=== PATIENT | female | born 1980 | race Caucasian/White ===

== ENCOUNTER → 2023-11-22 | Outpatient (CLI) | payer OTHER, SELFPAY ==
--- OUTSIDE RECORDS SUMMARY | 2023-11-22 07:41 | XMS RPT_ITS | CCD ---
Author Name Unknown Address [address] [place] [address] Organization [facility] Care Team Providers Care Health Therapist Name Role Phone Unknown, Referring Provider Unavailable Unav ailable Unavailable Unavailable Unavailable Unavailable Peyton Manuel MD Primary Care Provider [phone] Unavailable Unavailable Peyton Manuel MD Primary Care Provider PEYTON MANUEL Primary Care Unavailable PEYTON MANUEL Primary Care Unavailable PEYTON MANUEL Primary Care Unavailable UNKNOWN, PCP Primary Care Unavailable Dr. Kalee Aguirre Attending Jacinda vailable Timothy, Dr. Kalee Sosa Admitting Jacinda vailable UNKNOWN, PCP Primary Care Unavailable Timothy, Dr. Kalee Sosa Attending Jacinda vailable Timothy, Dr. Kalee Sosa Referring Jacinda vailable UNKNOWN, PCP Primary Care Unavailable Dr. Kalee Aguirre Attending Jacinda vailable Timothy, Dr. Kalee Sosa Referring Jacinda vailable Timothy, Dr. Kalee Sosa Attending Jacinda vailable UNKNOWN, PCP Primary Care Unavailable Timothy, Dr. Kalee Sosa Referring Jacinda vailable UNKNOWN, PCP Primary Care Unavailable MD IRENA HAMMOND Attending Unavail able Dr. Kalee Aguirre Referring Jacinda vailable UNKNOWN, PCP Primary Care Unavailable PCP, Pt States None Referring Unavailable MD IRENA HAMMOND Attending Unavail able Allergies Allergy Classification Reported Allergen(s) Allergy Type Date of Onset Reaction(s) Facility (20 sources) Amoxicillin; Translations: [Amoxicillin TABS] Drug Allergy 5 Hives [facility] Work Phone: (4 sources) predniSONE; Translations: [PREDNISONE] Drug Allergy Other: See Comments [facility] Work Phone: (3 sources) Environmental Allergies [Other] Propensity to adverse reactions 6 [facility] (3 sources) Seasonal [Other] Propensity to adverse reactions 8 [facility] Work Phone: (1 source) Amoxicillin; Translations: [AMOXICILLIN] Drug Allergy 5 [facility] Repository (1 source) OTHER; Translations: [OTHER] Propensity to adverse reactions (disorder) 8 [facility] Repository Medications Current Medications Medication Drug Class(es) Dates Sig (Normalized) Sig (Original) cefdinir 300 mg oral capsule (1 source) Cephalosporin Antibacterial Start: 09-29-2022 End: 10-06-2022 take 1 capsule by mouth twice daily cefdinir (OMNICEF) 300 mg capsule Indications: Bacterial sinusitis Take 1 capsule by mouth twice daily for 7 days. 14 capsule 0 09/29/2022 10/06/2022 Active Completed/Discontinued Medications Medication Drug Class(es) Dates Sig (Normalized) Sig (Original) [id number] 200 actuat albuterol 0.09 mg/actuat metered dose inhaler (20 sources) beta2-Adrenergic Agonist Start: 12-02-2020 take 2 puff(s) by inhalation every four hours as needed for wheezing albuterol HFA (PROAIR HFA) 90 mcg/actuation inhaler Inhale 2 Puffs as instructed every 4 hours as needed for Wheezing/Shortnes s of Breath (coughing, tightness in chest). 18 g 0 12/02/2020 Active Problems Active Problems Problem Classification Problem Date Documented Date Episodic/Chronic Allergic reactions (20 sources) Idiopathic urticaria; Translations: [Idiopathic urticaria] Episodic Asthma (3 sources) Asthma; Translations: [Unspecified asthma, uncomplicated] 09-07-2011 Chronic Fever of unknown origin (1 source) Fever; Translations: [Fever, unspecified] Episodic Headache; including migraine (20 sources) Refractory migraine without aura; Translations: [Chronic migraine without aura, with intractable migraine, so stated, with status migrainosus] Onset: 08-27-2014 10-02-2015 Chronic Immunizations and screening for infectious disease (1 source) Rheumatoid factor positive; Translations: [Other and unspecified nonspecific immunological findings] Episodic Maintenance chemotherapy; radiotherapy (1 source) Encounter for antineoplastic immunotherapy; Translations: [Encounter for antineoplastic immunotherapy] Onset: 12-09-2021 Chronic Nausea and vomiting (20 sources) Nausea and vomiting; Translations: [Nausea with vomiting] Episodic Neoplasms of unspecified nature or uncertain behavior (11 sources) Mast cell disorder; 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] Episodic Other circulatory disease (20 sources) H/O: hypertension; Translations: [Personal history of other diseases of circulatory system] Episodic Other hereditary and degenerative nervous system conditions (20 sources) Isolated cervical dystonia; 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 Other nervous system disorders (20 sources) H/O: Disorder; Translations: [Other disorders of ear] Episodic Other non-traumatic joint disorders (1 source) Multiple joint pain; Translations: [Pain in joint, multiple sites] Episodic Other upper respiratory disease (14 sources) Allergic rhinitis; Translations: [Allergic rhinitis due to other allergen] Chronic Other upper respiratory disease (1 source) Nasal sinus problem; Translations: [Other specified disorders of nose and nasal sinuses] Episodic Other upper respiratory disease (1 source) Nasal congestion; Translations: [Nasal congestion] Episodic Other upper respiratory infections (1 source) Bacterial sinusitis; Translations: [Chronic sinusitis, unspecified] Chronic Other upper respiratory infections (3 sources) Sore throat symptom; Translations: [Acute pharyngitis, unspecified] Episodic Past or Other Problems Problem Classification Problem Date Documented Date Episodic/Chronic Contraceptive and procreative management (3 sources) Intrauterine contraceptive device in situ; Translations: [Encounter for routine checking of intrauterine contraceptive device] Onset: 08-03-2010 08-03-2010 Episodic Headache; including migraine (3 sources) Drug-induced headache, not elsewhere classified, not intractable; Translations: [Drug induced headache, not elsewhere classified] Onset: 08-27-2014 08-27-2014 Episodic NEGATED: Highlighted row has been ruled out!Neoplasms of unspecified nature or uncertain behavior (5 sources) Mast cell disorder; 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] Episodic Results Test Name Value Interpretation Reference Range Facil ity Vital Signs Date Time Vital Sign Value Performing Clinician Facility 02-23-2023 10:45-0500 Body height 162.56 cm Referring Provider Unknown AG-Twxezbxdx-Ncbvx a 170 DO Work Phone: 11-25-2022 10:45-0500 Body temperature 98 [degF] Referring Provider Unknown ZG-Kibrnupcs-Hujqj a 170 DO Work Phone: 11-25-2022 10:45-0500 Diastolic blood pressure 87 mm[Hg] Referring Provider Unknown UU-Jnjpavvvj-Lkuwo a 170 DO Work Phone: 11-25-2022 10:45-0500 Heart rate 80 /min Referring Provider Unknown UA-Tvhuebnkm-Esmwk a 170 DO Work Phone: 11-25-2022 10:45-0500 Systolic blood pressure 132 mm[Hg] Referring Provider Unknown IZ-Pejmuihtu-Mvpao a 170 DO Work Phone: 11-10-2022 10:57-0500 Body height 162.6 cm Savanna Wormald PA-C Work Phone: [facility] 11-10-2022 10:57-0500 Body temperature 97.39 [degF] Savanna Wormald PA-C Work Phone: [facility] 11-10-2022 10:57-0500 Body weight 86.18 kg Savanna Wormald PA-C Work Phone: [facility] 11-10-2022 10:57-0500 Diastolic blood pressure 97 mm[Hg] Savanna Wormald PA-C Work Phone: [facility] 11-10-2022 10:57-0500 Heart rate 94 /min Savanna Wormald PA-C Work Phone: [facility] 11-10-2022 10:57-0500 Respiratory rate 18 /min Savanna Wormald PA-C Work Phone: [facility] 11-10-2022 10:57-0500 SaO2% (BldA) [Mass fraction] 97 % Savanna Wormald PA-C Work Phone: [facility] 11-10-2022 10:57-0500 Systolic blood pressure 119 mm[Hg] Savanna Wormald PA-C Work Phone: [facility] 09-29-2022 08:06-0500 Body temperature 98.2 [degF] Savanna Wormald PA-C Work Phone: [facility] 09-29-2022 08:06-0500 Body weight 85.09 kg Savanna Wormald PA-C Work Phone: [facility] 09-29-2022 08:06-0500 Diastolic blood pressure 84 mm[Hg] Savanna Wormald PA-C Work Phone: [facility] 09-29-2022 08:06-0500 Heart rate 82 /min Savanna Wormald PA-C Work Phone: [facility] 09-29-2022 08:06-0500 SaO2% (BldA) [Mass fraction] 95 % Savanna Wormald PA-C Work Phone: [facility] 09-29-2022 08:06-0500 Systolic blood pressure 118 mm[Hg] Savanna Wormald PA-C Work Phone: [facility] 03-15-2022 15:05-0400 Body temperature 98.2 [degF] Referring Provider Unknown RJ-Zvicaqhiv-Ilryl a 170 DO Work Phone: 03-15-2022 15:05-0400 Diastolic blood pressure 74 mm[Hg] Referring Provider Unknown AT-Mwejdtecp-Oyuyo a 170 DO Work Phone: 03-15-2022 15:05-0400 Heart rate 72 /min Referring Provider Unknown JT-Hwqhiqshj-Updqs a 170 DO Work Phone: 03-15-2022 15:05-0400 Respiratory rate 12 /min Referring Provider Unknown PP-Yadfpubzc-Thnxq a 170 DO Work Phone: 03-15-2022 15:05-0400 Systolic blood pressure 100 mm[Hg] Referring Provider Unknown ND-Brxtxetbr-Txrgf a 170 DO Work Phone: 06-03-2022 10:00-0400 Body mass index (BMI) [Ratio] 32.61 kg/m2 Referring Provider Unknown OI-Bjdaqplqri-Nlth n [id number] Work Phone: 03-05-2022 10:00-0400 Body surface area Derived from formula 1.91 m2 Referring Provider Unknown RU-Ycjylnignl-Ajlz n 58583 Work Phone: 03-05-2022 10:00-0400 Body weight 86.18 kg Referring Provider Unknown TE-Sxjiytsvsq-Jjxc n 32628 Work Phone: 03-05-2022 10:00-0400 Diastolic blood pressure 100 mm[Hg] Referring Provider Unknown RP-Fmhrxozzjm-Fvvo n [id number] Work Phone: 03-05-2022 10:00-0400 Heart rate 74 /min Referring Provider Unknown EN-Gwalakbdqi-Ghxy n 21687 Work Phone: 03-05-2022 10:00-0400 Systolic blood pressure 133 mm[Hg] Referring Provider Unknown BZ-Xwxxaftbrf-Fzfv n [id number] Work Phone: 03-02-2022 09:34-0400 Body height 162.6 cm Desiree Aissatouaugh PA-C Work Phone: [facility] 03-02-2022 09:34-0400 Body weight 85.28 kg Desiree Slabaugh PA-C Work Phone: [facility] 03-02-2022 09:34-0400 Diastolic blood pressure 87 mm[Hg] Desiree Aissatouaugh PA-C Work Phone: [facility] 03-02-2022 09:34-0400 Heart rate 92 /min Desiree Slabaugh PA-C Work Phone: [facility] 03-02-2022 09:34-0400 SaO2% (BldA) [Mass fraction] 99 % Desiree Slabaugh PA-C Work Phone: [facility] 03-02-2022 09:34-0400 Systolic blood pressure 127 mm[Hg] Desiree Slabaugh PA-C Work Phone: [facility] 02-01-2022 10:05-0400 Body mass index (BMI) [Ratio] 32.27 kg/m2 Referring Provider Unknown OV-Sigtzgddpx-Ctxw n 45636 Work Phone: 02-01-2022 10:05-0400 Body surface area Derived from formula 1.91 m2 Referring Provider Unknown UH-Qsogeidjxl-Kppc n 88089 Work Phone: 02-01-2022 10:05-0400 Body weight 85.28 kg Referring Provider Unknown RY-Lavjrsuaxk-Gruz n 31014 Work Phone: 02-01-2022 10:05-0400 Diastolic blood pressure 89 mm[Hg] Referring Provider Unknown AO-Qyelupqibp-Qhgz n 57182 Work Phone: 02-01-2022 10:05-0400 Heart rate 71 /min Referring Provider Unknown AR-Caugezdrwu-Uavo n 48023 Work Phone: 02-01-2022 10:05-0400 Systolic blood pressure 135 mm[Hg] Referring Provider Unknown EC-Ptsbdzmaee-Zumu n 27684 Work Phone: 12-31-2021 07:56-0400 Body temperature 98.1 [degF] Referring Provider Unknown HZ-Ilpwnvvcn-Ngxph a 170 DO Work Phone: 12-31-2021 07:56-0400 Diastolic blood pressure 70 mm[Hg] Referring Provider Unknown HW-Movwetelw-Gotlg a 170 DO Work Phone: 12-31-2021 07:56-0400 Heart rate 68 /min Referring Provider Unknown JP-Fytudovnu-Itvjs a 170 DO Work Phone: 12-31-2021 07:56-0400 Respiratory rate 16 /min Referring Provider Unknown WK-Hwfuqyiux-Fyhpr a 170 DO Work Phone: 12-31-2021 07:56-0400 Systolic blood pressure 104 mm[Hg] Referring Provider Unknown WT-Lkjayqpvp-Tbdfy a 170 DO Work Phone: Encounters Encounter Date Encounter Type Care Provider Facility Start: 06-24-2023 Rx Renewal Referring Prov ider Unknown XO-Tjjpmzkiz-Aoxesxg 5th Work Phone: Start: 11-25-2022 Office outpatient vi sit 25 minutes Referring Provider Unknown MT-Akzhhudir-Bpueej 170 DO Work Phone: Start: 11-25-[address] Kalee Aguirre Facility:[id number] Start: 11-10-2022 End: 11-10-2022 ambulatory PEYTON MANUEL Facility:[facility] Start: 11-10-2022 End: 11-10-2022 Patient encounter procedure Savanna Hurtado PA-C Work Phone: [facility] Procedures Date Procedure Procedure Detail Performing Clinician Start: 11-10-2022 STREP A MOLECULAR (POC) Savanna Hurtado PA-C Work Phone: Start: 08-24-2016 Adult depression screening assessment Desiree Horton PA-C Work Phone: Adenoid excision Referring Sravanthi artis Unknown Plan of Treatment Date Care Activity Detail Author Start: 02-24-2023 FUVGENERAL, Provider: Kalee Aguirre, Status: Pen, Time: 10:00 AM FUVGENERAL, Provider: Kalee Aguirre, Status: Pen, Time: 10:00 AM IJ-Fsxblilza-Caolrm 170 DO Work Phone: Start: 10-03-2022 DEPRESSION ASSESSMENT DEPRESSION ASSESSMENT [facility] Start: 09-13-2022 FUVGENERAL, Provider: Kalee Aguirre, Status: Pen, Time: 10:30 AM FUVGENERAL, Provider: Kalee Aguirre, Status: Pen, Time: 10:30 AM WQ-Grpbajfjx-Tosfbt 170 DO Work Phone: Start: 06-03-2022 Influenza vaccination [facility] Start: 03-15-2022 FUVGENERAL, Provider: Kalee Aguirre, Status: Pen, Time: 3:00 PM FUVGENERAL, Provider: Kalee Aguirre, Status: Pen, Time: 3:00 PM WP-Kxcaeyhkp-Ctmcfe 170 DO Work Phone: Start: 03-05-2022 FUV, Provider: Iram Farr, Status: Pen, Time: 10:00 AM FUV, Provider: Iram Farr, Status: Pen, Time: 10:00 AM QM-Vufitniaov-Rvtnq 53947 Work Phone: Start: 02-01-2022 NPVRFRL, Provider: Irena Hammond, Status: Pen, Time: 10:00 AM NPVRFRL, Provider: Irena Hammond, Status: Pen, Time: 10:00 AM [facility] Work Phone: Start: 10-03-2021 DEPRESSION ASSESSMENT DEPRESSION ASSESSMENT [facility] Start: 08-11-2021 Urine microalbumin profile DTAP,TDAP,TD (2 - Td or Tdap) [facility] Start: 2019 Mammography MAMMOGRAM [facility] Start: 08-24-2017 Adult depression screening assessment DEPRESSION SCREENING [facility] Start: 08-03-2015 HPV TESTING HPV TESTING [facility] Start: 08-03-2015 PAP TESTING PAP TESTING [facility] Start: 1997 ANNUAL PCP TEAM CHRONIC DISEASE VISIT ANNUAL PCP TEAM CHRONIC DISEASE VISIT [facility] Start: 1997 HEPATITIS C SCREENING HEPATITIS C SCREENING [facility] Start: 1997 HIV SCREENING HIV SCREENING [facility] Start: 1997 SPIROMETRY SPIROMETRY [facility] Start: 1985 PNEUMOCOCCAL (1 - PCV) PNEUMOCOCCAL (1 - PCV) [facility] Start: 1984 COVID-19 VACCINE (#1) COVID-19 VACCINE (#1) [facility] Start: 04-08-1980 COVID-19 VACCINE (#1) COVID-19 VACCINE (#1) [facility] Start: 1979 HEPATITIS B (1 of 3 - 3-dose series) HEPATITIS B (1 of 3 - 3-dose series) [facility] Immunizations Immunization Date Immunization Notes Care Provider Debra lima 08-11-2011 tetanus toxoid, redu hudson diphtheria toxoid, and acellular pertussis vaccine, adsorbed Desiree Horton PA-C Work Phone: [facility] Work Phone: Payers Date Payer Category Payer Unknown 2019 Unknown MMO MMO [employer] [id number] 2019-Present [phone] [address] [place] [address] PPO [id number] 2019 Unknown [id number] 1979 Unknown [id number] 1979 Unknown [id number] 1979 Unknown [id number] 1979 Unknown [id number] 1979 Unknown [id number] 1979 Unknown [id number] Social History Date Type Detail Facility Start: 09-29-2022 Occasional alcohol use Occasional al cohol use VL-Htlagwynx-Ksfgij 170 DO Work Phone: Start: 09-29-2022 Tobacco smoking stat us ORIS Ex-smoker [facility] End: 11-03-1998 History of tobacco use Current smoker [facility] End: 11-03-1998 History of tobacco use Cigarette Smoker [facility] Start: 12-02-2020 End: 11-10-2022 Alcohol intake Current drinker of alcohol (finding) [facility] Start: 12-30-2011 History SDOH Alcohol Comment Rarely 4 per year [facility] Start: 1979 Sex Assigned At Not on file [facility] Start: 02-20-2022 End: 03-02-2022 Exposure to SARS-CoV-2 (event) Not sure [facility] Start: 09-29-2022 Tobacco use and exposure Smokeless tobacco non-user [facility] Medical Equipment Procedure Code Equipment Code Equipment Origin al Text Equipment Identifier Dates use to inject SUMATRIPTAN Start: 10-16-2020 Clinical Notes 01-09-2010 to 11-25-2022 Patient InstructionsSavanna Hurtado PA-C - 11/10/2022 10:56 AM ESTPatient InstructionsSavanna Hurtado PA-C - 09/29/2022 8:08 AM ESTPatient Instructions Note Date & Type Note Facility 11-25-2022 History of Present illness Narrative Migraines go through phases. Having a mild headache everyday, but migraine 4-5 days per week able to push through these .Due to her swelling and immunologic concerns - she is trying to take as little medication as possible.She is using Trudesa as needed 3x/month, and Qulipta as needed -- taking every 2-3 months takes rarely . These work great.Has Sumatriptan injection, hasn't used it recently.Using Trizanidine, but makes her hands face and neck swell. Does help her sleep.She stopped Reyvow due to weird dreams.Was having recurrent swelling and warmth, also some reactions to medications.Saw almond roaster for first time 02-01-2022. Given Dx of Idiopathic urticaria and Idiopathic urticaria.Ruled out mast cell disease. - still a problem.Reacted to December so no longer taking. Couldn't breath, flushed, chills but overheated. shaky of r along time. SOB for about 1 month.Migraine occurs behind eyes bilateral. Describes as pressureAssociated light and noise sensitivity, smell sensitivity, occasional nausea and vomiting.Triggers are strong smells, some foodsSleep has been good. Tizanidine prn. Has read that it increases histamine levels.Is seeing a commercial truck driver . Is trying to do a histamine diet and antiinflammatory diet.Gets headaches from advil or ibprofen. AK-Dnmibzvwb-Zvvjdc 170 DO Work Phone: 11-10-2022 Note HNO ID: [id number] Author: Savanna Hurtado PA-C Service: ? Author Type: Physician Director Advanced Type: Progress Notes Filed: 11/10/2022 11:40 AM Note Text: Subjective Rosamaria Romero Joricarey is a 42 year old female with a past medical history of migraine who presents [facility] today for evaluation of sore throat and fever that began 3 days ago. She was exposed to a niece who has strep pharyngitis. Review of Systems Constitutional: Positive for fever. Negative for chills and diaphoresis. HENT: Positive for sore throat. Negative for congestion and ear pain. Respiratory: Negative for cough and shortness of breath. Skin: Negative for rash and wound. Neurological: Negative for weakness and headaches. All other systems reviewed and are negative. Objective BP 119/97 Pulse 94 Temp 36.3 ?C (97.4 ?F) (Temporal) Resp 18 Ht 162.6 cm (5' 4 ) Wt 86.2 kg (190 lb) LMP 09/05/2022 (Approximate) SpO2 97% BMI 32.61 kg/m? Physical Exam Vitals reviewed. Constitutional: General: She is not in acute distress. Appearance: Normal appearance. She is normal weight. She is not ill-appearing or toxic-appearing. Comments: The patient appears to be non-toxic, in no acute distress, and resting comfortably on the table. HENT: Head: Normocephalic and atraumatic. Right Ear: Tympanic membrane, ear canal and external ear normal. Left Ear: Tympanic membrane, ear canal and external ear normal. Mouth/Throat: Mouth: Mucous membranes are moist. Pharynx: Oropharynx is clear. Uvula midline. Posterior oropharyngeal erythema present. Tonsils: No tonsillar exudate. 1+ on the right. 1+ on the left. Eyes: Extraocular Movements: Extraocular movements intact. Cardiovascular: Rate and Rhythm: Normal rate and regular rhythm. Heart sounds: Normal heart sounds. No murmur heard. No friction rub. No gallop. Pulmonary: Effort: Pulmonary effort is normal. No respiratory distress. Breath sounds: Normal breath sounds. No wheezing. Musculoskeletal: General: Normal range of motion. Cervical back: Normal range of motion. Skin: General: Skin is warm and dry. Findings: No erythema or rash. Neurological: General: No focal deficit present. Mental Status: She is alert and oriented to person, place, and time. Mental status is at baseline. Psychiatric: Mood and Affect: Mood normal. Behavior: Behavior normal. Thought Content: Thought content normal. Assessment and Plan Exam reveals postpharyngeal erythema with bilateral tonsillar edema. Uvula is midline. No trismus. Rapid strep positive. Results discussed with patient. Patient counseled regarding suspected diagnosis and given prescription for Keflex. Patient advised to follow-up with her primary care provider as needed for any new or worsening symptoms. ASSESSMENT/PLAN: 1. Strep throat - ICD9: 034.0, ICD10: J02.0 (primary diagnosis) - suspect strep - Rapid Strep positive in the office today - CEPHALEXIN 500 MG CAPSULE 2. Sore throat - ICD9: 462, ICD10: J02.9 - STREP A MOLECULAR (POC) 3. Fever, unspecified fever cause - ICD9: 780.60, ICD10: R50.9 - STREP A MOLECULAR (POC) Medical Decision Making: Problems: Moderate: Acute illness with systemic symptoms Risk: Minimal: Minimal risk from testing/treatment Moderate: Drug management Medical Decision Making Level: 4 - Moderate I spent a total of 20 minutes on the date of the service which included preparing to see the patient, vpln-cu-znma patient care, completing clinical documentation, performing a medically appropriate examination, counseling and educating the patient/family/caregiver, and ordering medications, tests, or procedures. [facility] 11-10-2022 Instructions Savanna Hurtado PA-C - 11/10/2022 11:30 AM EST Strep Pharyngitis You have had a positive test for strep throat. Strep throat is a contagious illness. It's spread by coughing, kissing, sharing glasses or eating utensils, or by touching others after touching your mouth or nose. Symptoms include throat pain that is worse with swallowing, aching all over, headache, swollen lymph nodes at the front of the neck, and red swollen tonsils sometimes with white patches and fever. It's treated with antibiotic medicine. This should help you start to feel better in 1 to 2 days. Home care Rest at home. Drink plenty of fluids so you won't get dehydrated. No work or school for the first 2 days of taking the antibiotics. You can then return to school or work if you are feeling better, have been taking the antibiotic for at least 24 hours and don't have a fever. Take antibiotic medicine for the full 10 days, even if you feel better. This is very important to ensure the infection is treated completely. It's also important to prevent medicine-resistant germs from developing. If you were given an antibiotic shot, you don't need any more antibiotics. You may use acetaminophen or ibuprofen to control pain or fever, unless another medicine was prescribed for this. Talk with your healthcare provider before taking these medicines if you have chronic liver or kidney disease or if you have had a stomach ulcer or gastrointestinal bleeding. Throat lozenges or sprays help reduce pain. Gargling with warm saltwater will also reduce throat pain. Dissolve 1/2 teaspoon of salt in 1 glass of warm water. This may be useful just before meals. Soft foods and cool or warm fluids are best. Don't eat salty or spicy foods. Follow-up care Follow up with your healthcare provider or our staff if you don't get better over the next week. When to get medical advice Call your healthcare provider right away or get immediate medical care if any of these occur: - Fever of 100.4 F (38 C) or higher, or as directed by your healthcare provider - New or worsening ear pain, sinus pain, or headache - Painful lumps in the back of neck - Stiff neck - Lymph nodes getting larger or becoming soft in the middle - You have trouble swallowing liquids or you can't open your mouth wide because of throat pain - Signs of dehydration. These include very dark urine or no urine, sunken eyes, and dizziness. - Noisy breathing - Muffled voice - Rash Call 911 Call 911right away if you: - Have trouble breathing - Can't swallow or talk Prevention Here are steps you can take to help prevent an infection: - Wash your hands often with soap and clean, running water for at least 20 seconds. - Don t have close contact with people who have sore throats, colds, or other upper respiratory infections. - Don t smoke, and stay away from secondhand smoke. documented in this encounter [facility] 11-10-2022 History of Present illness Narrative Subjective Rosamaria Umaña is a 42 year old female with a past medical history of migraine who presents [facility] today for evaluation of sore throat and fever that began 3 days ago. She was exposed to a niece who has strep pharyngitis. Review of Systems Constitutional: Positive for fever. Negative for chills and diaphoresis. HENT: Positive for sore throat. Negative for congestion and ear pain. Respiratory: Negative for cough and shortness of breath. Skin: Negative for rash and wound. Neurological: Negative for weakness and headaches. All other systems reviewed and are negative. Objective BP 119/97 Pulse 94 Temp 36.3 C (97.4 F) (Temporal) Resp 18 Ht 162.6 cm (5' 4 ) Wt 86.2 kg (190 lb) LMP 09/05/2022 (Approximate) SpO2 97% BMI 32.61 kg/m Physical Exam Vitals reviewed. Constitutional: General: She is not in acute distress. Appearance: Normal appearance. She is normal weight. She is not ill-appearing or toxic-appearing. Comments: The patient appears to be non-toxic, in no acute distress, and resting comfortably on the table. HENT: Head: Normocephalic and atraumatic. Right Ear: Tympanic membrane, ear canal and external ear normal. Left Ear: Tympanic membrane, ear canal and external ear normal. Mouth/Throat: Mouth: Mucous membranes are moist. Pharynx: Oropharynx is clear. Uvula midline. Posterior oropharyngeal erythema present. Tonsils: No tonsillar exudate. 1+ on the right. 1+ on the left. Eyes: Extraocular Movements: Extraocular movements intact. Cardiovascular: Rate and Rhythm: Normal rate and regular rhythm. Heart sounds: Normal heart sounds. No murmur heard. No friction rub. No gallop. Pulmonary: Effort: Pulmonary effort is normal. No respiratory distress. Breath sounds: Normal breath sounds. No wheezing. Musculoskeletal: General: Normal range of motion. Cervical back: Normal range of motion. Skin: General: Skin is warm and dry. Findings: No erythema or rash. Neurological: General: No focal deficit present. Mental Status: She is alert and oriented to person, place, and time. Mental status is at baseline. Psychiatric: Mood and Affect: Mood normal. Behavior: Behavior normal. Thought Content: Thought content normal. Assessment and Plan Exam reveals postpharyngeal erythema with bilateral tonsillar edema. Uvula is midline. No trismus. Rapid strep positive. Results discussed with patient. Patient counseled regarding suspected diagnosis and given prescription for Keflex. Patient advised to follow-up with her primary care provider as needed for any new or worsening symptoms. ASSESSMENT/PLAN: 1. Strep throat - ICD9: 034.0, ICD10: J02.0 (primary diagnosis) - suspect strep - Rapid Strep positive in the office today - CEPHALEXIN 500 MG CAPSULE 2. Sore throat - ICD9: 462, ICD10: J02.9 - STREP A MOLECULAR (POC) 3. Fever, unspecified fever cause - ICD9: 780.60, ICD10: R50.9 - STREP A MOLECULAR (POC) Medical Decision Making: Problems: Moderate: Acute illness with systemic symptoms Risk: Minimal: Minimal risk from testing/treatment Moderate: Drug management Medical Decision Making Level: 4 - Moderate I spent a total of 20 minutes on the date of the service which included preparing to see the patient, [id number] patient care, completing clinical documentation, performing a medically appropriate examination, counseling and educating the patient/family/caregiver, and ordering medications, tests, or procedures. documented in this encounter [facility] 09-29-2022 Note HNO ID: [id number] Author: Savanna Hurtado PA-C Service: ? Author Type: Physician Director Advanced Type: Progress Notes Filed: 09/29/2022 8:26 AM Note Text: Subjective Rosamaria Umaña is a 41 year old female with a past medical history of migraine who presents to [facility] today for evaluation of cough, nasal congestion, sinus pressure, and sinus pain x1 month. She states that she has had sinus infections in the past and this feels similar. She denies having any fever. No known exposure to COVID-19 or influenza. Review of Systems Constitutional: Negative for chills, diaphoresis and fever. HENT: Positive for congestion, sinus pressure, sinus pain and sore throat. Negative for ear pain. Eyes: Negative for discharge and redness. Respiratory: Positive for cough. Negative for shortness of breath. Skin: Negative for rash and wound. Neurological: Negative for weakness and headaches. All other systems reviewed and are negative. Objective BP 118/84 Pulse 82 Temp 36.8 ?C (98.2 ?F) (Tympanic) Wt 85.1 kg (187 lb 9.6 oz) LMP 09/05/2022 (Approximate) SpO2 95% BMI 32.20 kg/m? Physical Exam Vitals reviewed. Constitutional: General: She is not in acute distress. Appearance: Normal appearance. She is normal weight. She is not ill-appearing or toxic-appearing. Comments: The patient appears to be non-toxic, in no acute distress, and resting comfortably on the table. HENT: Head: Normocephalic and atraumatic. Right Ear: Ear canal and external ear normal. A middle ear effusion is present. Left Ear: Ear canal and external ear normal. A middle ear effusion is present. Nose: Right Sinus: Maxillary sinus tenderness present. Left Sinus: Maxillary sinus tenderness present. Eyes: Extraocular Movements: Extraocular movements intact. Cardiovascular: Rate and Rhythm: Normal rate and regular rhythm. Heart sounds: Normal heart sounds. No murmur heard. No friction rub. No gallop. Pulmonary: Effort: Pulmonary effort is normal. No respiratory distress. Breath sounds: Normal breath sounds. No wheezing. Musculoskeletal: General: Normal range of motion. Cervical back: Normal range of motion. Skin: General: Skin is warm and dry. Findings: No erythema or rash. Neurological: General: No focal deficit present. Mental Status: She is alert and oriented to person, place, and time. Mental status is at baseline. Psychiatric: Mood and Affect: Mood normal. Behavior: Behavior normal. Thought Content: Thought content normal. Assessment and Plan History and exam are consistent with acute bacterial sinusitis. Patient counseled regarding suspected diagnosis and given prescription for Omnicef. Patient advised to follow-up with her primary care provider as needed for any new or worsening symptoms ASSESSMENT/PLAN: 1. Bacterial sinusitis - ICD9: 473.9, 041.9, ICD10: J32.9, B96.89 (primary diagnosis) - Will begin treatment with as per antibiotic as written, see orders - CEFDINIR 300 MG CAPSULE 2. Sore throat - ICD9: 462, ICD10: J02.9 3. Sinus pressure - ICD9: 478.19, ICD10: J34.89 4. Nasal congestion - ICD9: 478.19, ICD10: R09.81 Medical Decision Making: Problems: Low: Acute, uncomplicated illness or injury Risk: Minimal: Minimal risk from testing/treatment Moderate: Drug management Medical Decision Making Level: 3 - Low I spent a total of 20 minutes on the date of the service which included preparing to see the patient, [id number] patient care, completing clinical documentation, performing a medically appropriate examination, counseling and educating the patient/family/caregiver, and ordering medications, tests, or procedures. [facility] 09-29-2022 Instructions Savanna Hurtado PA-C - 09/29/2022 8:18 AM EST [facility] PATIENT INFO ACUTE SINUSITIS OVERVIEW Rhinosinusitis, or more commonly sinusitis, is the medical term for inflammation (swelling) of the lining of the sinuses and nose. The sinuses are the hollow areas within the facial bones that are connected to the nasal openings. The sinuses are lined with mucous membranes, similar to the inside of the nose. There are two main types of sinusitis: acute and chronic. Acute sinusitis is inflammation that lasts for less than four weeks while chronic sinusitis lasts for more than 12 weeks. Acute sinusitis is common, affecting approximately one million people per year in the [place]. ACUTE SINUSITIS CAUSES The most common cause of acute sinusitis is a viral infection associated with the common cold. Bacterial sinusitis occurs much less commonly, in only 0.5 to 2 percent of cases, usually as a complication of viral sinusitis. Because antibiotics are effective only against bacterial, and not viral, infections, most people do not need antibiotics for acute sinusitis. ACUTE SINUSITIS SYMPTOMS Symptoms of acute sinusitis include: Nasal congestion or blockage Thick, yellow to green discharge from the nose Pain in the teeth Pain or pressure in the face that is worse when bending forwards Other acute sinusitis symptoms can include fever (temperature greater than 100.4 F or 38 C), fatigue, cough, difficulty or inability to smell, ear pressure or fullness, headache, and bad breath. In most cases, these symptoms develop over the course of one day and begin to improve within seven to 10 days. DO I NEED TO BE EXAMINED? It is difficult to know if you have a viral or bacterial sinus infection initially. However, most people with a viral infection improve without treatment within seven to 10 days after symptoms begin. Bacterial sinusitis also sometimes improves without treatment, although it can also worsen and require treatment. If one or more of the following bothersome symptoms last more than seven days, an examination by a healthcare provider is recommended: Thick, yellow to green discharge from the nose Face or tooth pain, especially if it is only on one side Tenderness over the maxillary sinuses (located on the left and right side of the nose, inside the cheekbones) Symptoms that initially improve and then worsen When to seek immediate help -- If you have one or more of the following symptoms, you should seek medical attention immediately (even if symptoms have been present for less than seven days): High fever (>102.5 F or 39.2 C) Sudden, severe pain in the face or head Double vision or difficulty seeing Confusion or difficulty thinking clearly Swelling or redness around one or both eyes Stiff neck, shortness of breath ACUTE SINUSITIS TREATMENT Initial treatment of a sinus infection aims to relieve symptoms since almost everyone will improve within the first seven to 10 days. Experts recommend avoiding antibiotics during this time unless there is clear evidence of a severe bacterial infection. Initial treatment Pain relief -- Non-prescription pain medications, such as acetaminophen (eg, Tylenol ) or ibuprofen (eg, Motrin , Advil ) are recommended for pain. Nasal irrigation and saline sprays -- Rinsing the nose with a salt-water (saline) solution is called nasal irrigation or nasal lavage. Saline is also available in a standard nasal spray, although this is not as effective as using larger amounts of water in an irrigation. Nasal irrigation is particularly useful for treating drainage down the back of the throat, sneezing, nasal dryness, and congestion. The treatment helps by rinsing out allergens and irritants from the nose. Saline rinses also clean the nasal lining and can be used before applying sprays containing medications, to get a better effect from the medication. Nasal lavage with warmed saline can be performed as needed, once per day, or twice daily for increased symptoms. Nasal lavage carries few risks when performed correctly. Saline nasal sprays and irrigation kits can be purchased [id number]. Saline mixes can also be purchased or patients can make their own solution. A variety of devices, including bulb syringes, Neti pots, and bottle sprayers, may be used to perform nasal lavage; instructions for nasal lavage are provided in the table. At least 200 mL (about 3/4 cup) of fluid is recommended for each nostril. Nasal decongestants -- Nasal decongestant sprays, including oxymetazoline (Afrin ) and phenylephrine (Tito-synephrine ) can be used to temporarily treat congestion. However, these sprays should not be used for more than two to three days due to the risk of rebound congestion (when the nose is congested constantly unless the medication is used repeatedly). Other treatments -- Other treatments for congestion, such as oral antihistamines (such as diphenhydramine/Benadryl ) or zinc supplements are not proven to improve symptoms of sinusitis and can have unwanted side effects. Medications to thin secretions (such as guaifenesin) may help to clear mucus. Secondline treatment -- If symptoms have not improved in seven to ten days, you should arrange for medical evaluation. You may need further treatment. Nasal glucocorticoids -- Nasal glucocorticoids (steroids delivered by a nasal spray) can help to reduce swelling inside the nose, usually within two to three days. These drugs have few side effects and dramatically relieve symptoms in most people. There are a number of nasal glucocorticoids available by prescription. These drugs are all effective, but differ in how frequently they must be used and how much they cost. You may need to use a nasal decongestant for a few days before starting a nasal glucocorticoid to reduce nasal swelling; this will allow the nasal glucocorticoid to reach more areas of the nasal passages Do I need an antibiotic? -- If bothersome symptoms of sinusitis persist for 10 or more days, it is possible that you have bacterial sinusitis. The need for antibiotics depends upon the severity of your symptoms. Mild symptoms -- There are two possible treatment options if you have mild sinusitis symptoms: treat with antibiotics or continue to watch and wait for one week. Watching and waiting is a reasonable option because up to 75 percent of people with bacterial sinusitis improve within one month without antibiotics. During the watch and wait period, treatments to improve symptoms are recommended. If symptoms worsen or do not improve after watching and waiting, treatment with an antibiotic is usually recommended. Treatments to relieve symptoms are recommended while using antibiotics. Moderate or severe symptoms -- Most healthcare providers will prescribe an antibiotic for moderate to severe symptoms (temperature >38.3 C or 101 F and/or severe pain that interferes with usual activities). Treatments to relieve symptoms are also recommended during antibiotic treatment. One of the least expensive and most effective antibiotics for sinusitis is amoxicillin. An alternate antibiotic will be prescribed if you are allergic to penicillin. Regardless of which antibiotic is prescribed, it is important to follow the dosing instructions carefully and to finish the entire course of treatment. Taking the medication less often than prescribed or stopping the medication early can lead to complications, such as a recurrent infection. What if I do not improve with treatment? -- If you do not improve or worsen after a course of antibiotics, you should be re-examined. In some cases, symptoms of sinusitis improve but then recur. This is usually because the infection was not completely eliminated by the antibiotic. An alternate antibiotic, extended antibiotic treatment, and/or further testing may be recommended, depending upon your individual situation. documented in this encounter [facility] 09-29-2022 History of Present illness Narrative Subjective Rosamaria Umaña is a 41 year old female with a past medical history of migraine who presents to [facility] today for evaluation of cough, nasal congestion, sinus pressure, and sinus pain x1 month. She states that she has had sinus infections in the past and this feels similar. She denies having any fever. No known exposure to COVID-19 or influenza. Review of Systems Constitutional: Negative for chills, diaphoresis and fever. HENT: Positive for congestion, sinus pressure, sinus pain and sore throat. Negative for ear pain. Eyes: Negative for discharge and redness. Respiratory: Positive for cough. Negative for shortness of breath. Skin: Negative for rash and wound. Neurological: Negative for weakness and headaches. All other systems reviewed and are negative. Objective BP 118/84 Pulse 82 Temp 36.8 C (98.2 F) (Tympanic) Wt 85.1 kg (187 lb 9.6 oz) LMP 09/05/2022 (Approximate) SpO2 95% BMI 32.20 kg/m Physical Exam Vitals reviewed. Constitutional: General: She is not in acute distress. Appearance: Normal appearance. She is normal weight. She is not ill-appearing or toxic-appearing. Comments: The patient appears to be non-toxic, in no acute distress, and resting comfortably on the table. HENT: Head: Normocephalic and atraumatic. Right Ear: Ear canal and external ear normal. A middle ear effusion is present. Left Ear: Ear canal and external ear normal. A middle ear effusion is present. Nose: Right Sinus: Maxillary sinus tenderness present. Left Sinus: Maxillary sinus tenderness present. Eyes: Extraocular Movements: Extraocular movements intact. Cardiovascular: Rate and Rhythm: Normal rate and regular rhythm. Heart sounds: Normal heart sounds. No murmur heard. No friction rub. No gallop. Pulmonary: Effort: Pulmonary effort is normal. No respiratory distress. Breath sounds: Normal breath sounds. No wheezing. Musculoskeletal: General: Normal range of motion. Cervical back: Normal range of motion. Skin: General: Skin is warm and dry. Findings: No erythema or rash. Neurological: General: No focal deficit present. Mental Status: She is alert and oriented to person, place, and time. Mental status is at baseline. Psychiatric: Mood and Affect: Mood normal. Behavior: Behavior normal. Thought Content: Thought content normal. Assessment and Plan History and exam are consistent with acute bacterial sinusitis. Patient counseled regarding suspected diagnosis and given prescription for Omnicef. Patient advised to follow-up with her primary care provider as needed for any new or worsening symptoms ASSESSMENT/PLAN: 1. Bacterial sinusitis - ICD9: 473.9, 041.9, ICD10: J32.9, B96.89 (primary diagnosis) - Will begin treatment with as per antibiotic as written, see orders - CEFDINIR 300 MG CAPSULE 2. Sore throat - ICD9: 462, ICD10: J02.9 3. Sinus pressure - ICD9: 478.19, ICD10: J34.89 4. Nasal congestion - ICD9: 478.19, ICD10: R09.81 Medical Decision Making: Problems: Low: Acute, uncomplicated illness or injury Risk: Minimal: Minimal risk from testing/treatment Moderate: Drug management Medical Decision Making Level: 3 - Low I spent a total of 20 minutes on the date of the service which included preparing to see the patient, [id number] patient care, completing clinical documentation, performing a medically appropriate examination, counseling and educating the patient/family/caregiver, and ordering medications, tests, or procedures. documented in this encounter [facility] 03-09-2022 History of Present illness Narrative Just received and started Qulipta last week.Too early to tell efficacy.Recovering from poison zayra on face, in ears, in throat. Started 2 weeks ago today. 5 day medrol pakReacted to the medrol dose pack. Jittery, felt internally on fire, flushed and chest flushed and bright red, puffy, can't sleep at night.Saw almond roaster for first time 02-01-2022.Ruled out mast cell disease.Experiencing daily migraine but not quite as severe.Treats on average once weekly.Trudhesa works well for her. Gets 4 per month. Takes them every weekend. Keeps headaches away for a couple days. No side effect of reaction to Trudhesa. feels like Trudhesa resets me Has sumatriptan injection and eletriptan.Treats about 5 times per monthReacted to December so no longer taking. Couldn't breath, flushed, chills but overheated. shaky of r along time. SOB for about 1 month.Migraine occurs behind eyes bilateral. Describes as pressureAssociated light and noise sensitivity, smell sensitivity, occasional nausea and vomiting.Triggers are strong smells, some foodsSleep has been good. Tizanidine prn. Has read that it increases histamine levels.Is seeing a commercial truck driver . Is trying to do a histamine diet and antiinflammatory diet.Gets headaches from advil or ibprofen. [id number] 170 DO Work Phone: 03-02-2022 Note HNO ID: [id number] Author: Desiree Horton PA-C Service: ? Author Type: Physician Director Advanced Type: Progress Notes Filed: 03/02/2022 9:58 AM Note Text: 03/02/2022 Patient presents with: Rash: poison zayra, thinks its in airway SUBJECTIVE: This is a 41 year old that is here today for treatment of poison zayra. She has a little poison destinee on her right wrist/forearm x 2 days, but today hs itchy right eyelid, ear, and cheek, and she feels like her throat is a little itchy. They have been using Allgra, atarax, and singulair. She has a strong h/o chronic migraines ( I have a LANDERS all the time. ), and she states that she cannot take prednisone, steroid injections, or nasal steroids. They cause horrible, debilitating headaches, but she can tolerated a Medrol steroid pack. She refuses prednisone or injection steroids I've had horrible reactions. Patient denies LANDERS, dizziness, fever, chills, sweats, throat swelling, cough, wheezing, SOB, increased WOB, chest pain, or any other sign of systemic reaction. No other sick symptoms. No other URI symptoms. Denies fever, chills, wheezing or SOB. Patient denies shortness of breath, increased WOB, or chest pain. Pain on scale of 0-10 with 0 being no pain and 10 being greatest pain: 0 Nothing makes the symptoms better. Nothing makes them worse. Self-treatment:. See HPI Barriers to learning: none. Reviewed meds, OTCs, herbals or supplements. Reviewed allergies, medications, social history, and past medical history. 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 (REFER TO PRESCRIPTION NOTES). - eletriptan hydrobromide (ELETRIPTAN ORAL) Take by mouth. - methylPREDNISolone (MEDROL, ALIN,) 4 mg Dose-Pack Follow dosing instructions, take with food. - hydrOXYzine HCl (ATARAX) 25 mg tablet Take 25 mg by mouth twice daily as needed. - REYVOW 100 mg tablet take 1 tablet by mouth AT ONSET OF HEADACHE - UBRELVY 100 mg tablet take 1 tablet by mouth ONCE May repeat one time after 2 hours if ... (REFER TO PRESCRIPTION NOTES). - SAFETYGLIDE INSULIN 1 mL 29 gauge x 1/2 use to inject SUMATRIPTAN - albuterol HFA (PROAIR HFA) 90 mcg/actuation inhaler Inhale 2 Puffs as instructed every 4 hours as needed for Wheezing/Shortness of Breath (coughing, tightness in chest). - rizatriptan (MAXALT) 10 mg tablet Take 10 mg by mouth as needed. May repeat in 2 hours if needed - AJOVY 225 mg/1.5 mL syrg - tiZANidine (ZANAFLEX) 4 mg tablet take 1 tablet by mouth every 6 to 8 hours if needed NOT TO EXCEED 3 DOSES IN 24 HOURS - SUMAtriptan (IMITREX) 6 mg/0.5 mL kit inject 0.5 milliliters subcutaneously ONCE THEN MAY BE REPEATED O... (REFER TO PRESCRIPTION NOTES). No current facility-administered medications for this visit. Medications and allergies reviewed by this provider. SOCIAL HISTORY Social History Tobacco Use - Smoking status: Former Smoker Packs/day: 2.00 Years: 4.00 Pack years: 8.00 Types: Cigarettes Quit date: 11/03/1998 Years since quittin.3 - Smokeless tobacco: Never Used Substance Use Topics - Alcohol use: Yes Comment: Rarely 4 per year - Drug use: No REVIEW OF SYSTEMS Review of Systems ROS: constitutional-neg, heent-neg, heart-neg, respiratory-neg, skin-rash; poison zayra, lymph-neg, - All systems neg except as noted above in HPI. OBJECTIVE: BP 127/87 Pulse 92 Ht 162.6 cm (5' 4 ) Wt 85.3 kg (188 lb) LMP 11/18/2020 SpO2 99% BMI 32.27 kg/m? . Vital signs reviewed by this provider. Physical Exam Vitals reviewed. Constitutional: General: She is not in acute distress. Appearance: Normal appearance. She is well-developed and normal weight. She is not ill-appearing, toxic-appearing or diaphoretic. HENT: Head: Normocephalic and atraumatic. No right periorbital erythema or left periorbital erythema. Salivary Glands: Right salivary gland is not diffusely enlarged or tender. Left salivary gland is not diffusely enlarged or tender. Right Ear: Tympanic membrane, ear canal and external ear normal. Left Ear: Tympanic membrane, ear canal and external ear normal. Nose: Right Sinus: No maxillary sinus tenderness or frontal sinus tenderness. Left Sinus: No maxillary sinus tenderness or frontal sinus tenderness. Mouth/Throat: Lips: No lesions. Mouth: Mucous membranes are dry. No oral lesions or angioedema. Dentition: No gum lesions. Tongue: No lesions. (more content not included)... [facility] 03-02-2022 Instructions Desiree Horton PA-C - 03/02/2022 9:45 AM EDT ASSESSMENT/PLAN: 1. Plant dermatitis - - METHYLPREDNISOLONE 4 MG TABLETS IN A DOSE PACK- Previously tolerated - Cannot tolerated prednisone, injection steroids, or nasal steroids - Continue Atarax, madison, and Singulair - ER for worsening signs of reaction- Wheezing, throat tight, increased breathing changes, increased swelling, etc. Call PCP if symptoms worsen or no better. If symptoms worsen, or new symptoms develop go to ER. If you have worsening of breathing or breathing changes- go to ER. If you have persistent fever unrelieved by Tylenol/Motrin- go to the ER. Follow up as needed. Barriers to learning: none. The patient verbalizes understanding and is in agreement with plan of care. Desiree Horton PA-C documented in this encounter [facility] 03-02-2022 History of Present illness Narrative Images from the original note were not included. 03/02/2022 Patient presents with: Rash: poison zayra, thinks its in airway SUBJECTIVE: This is a 41 year old that is here today for treatment of poison zayra. She has a little poison destinee on her right wrist/forearm x 2 days, but today hs itchy right eyelid, ear, and cheek, and she feels like her throat is a little itchy. They have been using Allgra, atarax, and singulair. She has a strong h/o chronic migraines ( I have a LANDERS all the time. ), and she states that she cannot take prednisone, steroid injections, or nasal steroids. They cause horrible, debilitating headaches, but she can tolerated a Medrol steroid pack. She refuses prednisone or injection steroids I've had horrible reactions. Patient denies LANDERS, dizziness, fever, chills, sweats, throat swelling, cough, wheezing, SOB, increased WOB, chest pain, or any other sign of systemic reaction. No other sick symptoms. No other URI symptoms. Denies fever, chills, wheezing or SOB. Patient denies shortness of breath, increased WOB, or chest pain. Pain on scale of 0-10 with 0 being no pain and 10 being greatest pain: 0 Nothing makes the symptoms better. Nothing makes them worse. Self-treatment:. See HPI Barriers to learning: none. Reviewed meds, OTCs, herbals or supplements. Reviewed allergies, medications, social history, and past medical history. PAST MEDICAL HISTORY Diagnosis Date Allergic rhinitis due to other allergen Cold-induced asthma Encounter for insertion or removal of intrauterine contraceptive device 03/10/09 MIRENA-- removed on 12/30/2011 Female infertility of unspecified origin Female infertilityonly for the 1st conception Migraine Urticaria ALLERGIES Amoxicillin, Environmental Allergies [Other], Prednisone, and Seasonal [Other] MEDICATIONS Current Outpatient Medications Medication Sig eletriptan (RELPAX) 40 mg tablet take 1 tablet by mouth if needed AT ONSET OF HEADACHE may repeat ... (REFER TO PRESCRIPTION NOTES). eletriptan hydrobromide (ELETRIPTAN ORAL) Take by mouth. methylPREDNISolone (MEDROL, ALIN,) 4 mg Dose-Pack Follow dosing instructions, take with food. hydrOXYzine HCl (ATARAX) 25 mg tablet Take 25 mg by mouth twice daily as needed. REYVOW 100 mg tablet take 1 tablet by mouth AT ONSET OF HEADACHE UBRELVY 100 mg tablet take 1 tablet by mouth ONCE May repeat one time after 2 hours if ... (REFER TO PRESCRIPTION NOTES). SAFETYGLIDE INSULIN 1 mL 29 gauge x 1/2 use to inject SUMATRIPTAN albuterol HFA (PROAIR HFA) 90 mcg/actuation inhaler Inhale 2 Puffs as instructed every 4 hours as needed for Wheezing/Shortness of Breath (coughing, tightness in chest). rizatriptan (MAXALT) 10 mg tablet Take 10 mg by mouth as needed. May repeat in 2 hours if needed AJOVY 225 mg/1.5 mL syrg tiZANidine (ZANAFLEX) 4 mg tablet take 1 tablet by mouth every 6 to 8 hours if needed NOT TO EXCEED 3 DOSES IN 24 HOURS SUMAtriptan (IMITREX) 6 mg/0.5 mL kit inject 0.5 milliliters subcutaneously ONCE THEN MAY BE REPEATED O... (REFER TO PRESCRIPTION NOTES). No current facility-administered medications for this visit. Medications and allergies reviewed by this provider. SOCIAL HISTORY Social History Tobacco Use Smoking status: Former Smoker Packs/day: 2.00 Years: 4.00 Pack years: 8.00 Types: Cigarettes Quit date: 11/03/1998 Years since quittin.3 Smokeless tobacco: Never Used Substance Use Topics Alcohol use: Yes Comment: Rarely 4 per year Drug use: No REVIEW OF SYSTEMS Review of Systems ROS: constitutional-neg, heent-neg, heart-neg, respiratory-neg, skin-rash; poison zayra, lymph-neg, - All systems neg except as noted above in HPI. OBJECTIVE: BP 127/87 Pulse 92 Ht 162.6 cm (5' 4 ) Wt 85.3 kg (188 lb) LMP 11/18/2020 SpO2 99% BMI 32.27 kg/m . Vital signs reviewed by this provider. Physical Exam Vitals reviewed. Constitutional: General: She is not in acute distress. Appearance: Normal appearance. She is well-developed and normal weight. She is not ill-appearing, toxic-appearing or diaphoretic. HENT: Head: Normocephalic and atraumatic. No right periorbital erythema or left periorbital erythema. Salivary Glands: Right salivary gland is not diffusely enlarged or tender. Left salivary gland is not diffusely enlarged or tender. Right Ear: Tympanic membrane, ear canal and external ear normal. Left Ear: Tympanic membrane, ear canal and external ear normal. Nose: Right Sinus: No maxillary sinus tenderness or frontal sinus tenderness. Left Sinus: No maxillary sinus tenderness or frontal sinus tenderness. Mouth/Throat: Lips: No lesions. Mouth: Mucous membranes are dry. No oral lesions or angioedema. Dentition: No gum lesions. Tongue: No lesions. Palate: No mass and lesions. Pharynx: Oropharynx is clear. Uvula midline. No pharyngeal swelling, oropharyngeal exudate, posterior oropharyngeal erythema or uvula swelling. Tonsils: No tonsillar exudate or tonsillar abscesses. Eyes: General: No scleral icterus. Right eye: No discharge or hordeolum. Left eye: No discharge or hordeolum. Extraocular Movements: Extraocular movements intact. Right eye: Normal extraocular motion and no nystagmus. Left eye: Normal extraocular motion and no nystagmus. Conjunctiva/sclera: Conjunctivae normal. Right eye: Right conjunctiva is not injected. No chemosis. Left eye: Left conjunctiva is not injected. No chemosis. Pupils: Pupils are equal, round, and reactive to light. Pupils are equal. Cardiovascular: Rate and Rhythm: Normal rate and regular rhythm. Heart sounds: Normal heart sounds. Pulmonary: Effort: Pulmonary effort is normal. Breath sounds: Normal breath sounds and air entry. Skin: General: Skin is warm. Capillary Refill: Capillary refill takes less than 2 seconds. Findings: Rash present. Rash is vesicular. Neurological: General: No focal deficit present. Mental Status: She is alert and oriented to person, place, and time. Cranial Nerves: Cranial nerves are intact. No cranial nerve deficit or facial asymmetry. Psychiatric: Behavior: Behavior is cooperative. ASSESSMENT/PLAN: 1. Plant dermatitis - ICD9: 692.6, ICD10: L25.5 - METHYLPREDNISOLONE 4 MG TABLETS IN A DOSE PACK- Previously tolerated She refuses prednisone, steroid injection, or nasal steroids. - Cannot tolerated prednisone, injection steroids, or nasal steroids She has a strong h/o chronic migraines ( I have a LANDERS all the time. ), and she states that she cannot take prednisone, steroid injections, or nasal steroids. They cause horrible, debilitating headaches, but she can tolerated a Medrol steroid pack. She refuses prednisone or injection steroids I've had horrible reactions. - Continue Atarax, madison, and Singulair - ER for worsening signs of reaction- Wheezing, throat tight, increased breathing changes, increased swelling, etc. Call PCP if symptoms worsen or no better. If symptoms worsen, or new symptoms develop go to ER. If you have worsening of breathing or breathing changes- go to ER. If you have persistent fever unrelieved by Tylenol/Motrin- go to the ER. Follow up as needed. Barriers to learning: none. The patient verbalizes understanding and is in agreement with plan of care. Desiree Horton PA-C Medical Decision Making: Problems: Low: Acute, uncomplicated illness or injury Risk: Low: Low risk from testing/treatment Moderate: Drug management Medical Decision Making Level: 3 - Low I spent a total of 20 minutes on the date of the service which included preparing to see the patient, [id number] patient care, completing clinical documentation, performing a medically appropriate examination, counseling and educating the patient/family/caregiver and ordering medications, tests, or procedures. documented in this encounter [facility] 12-09-2021 Note Clinic Note: Education Assessment: Learning BarriersNo barriers TaughtPatient Primary Language of PatientEnglish Primary Language of White LearnerEnglish Name of White Learner & Relationshipself Infusion: Topic(s): InfusionFollow-up plan, How to reach your doctor, IV access MethodVerbal, Teach-Back EvaluationTeaches back IV Access: Topic(s): IV AccessPeripheral Sites MethodVerbal, Teach-Back EvaluationTeaches back Medications: MethodVerbal, Teach-Back EvaluationTeaches back NotesVyepti Electronic Signatures: Kavitha Rolle (DANDRE) (Signed 09-Dec-2021 10:43) Authored: Education Assessment, Infusion, IV Access, Medications Last Updated: 09-Dec-2021 10:43 by Kavitha Rolle (DANDRE) [facility] documented as of this encounter (statuses as of 03/02/2022) [facility]03[facility] History of Past illness Narrative* Problem Noted Date Resolved Date Abdominal pain, generalized 12/30/201112/03 Supervision of other normal 01/18/2006 08/03/2010 documented as of this encounter (statuses as of 10/05/2022) [facility] History of Past illness Narrative* Problem Noted Date Resolved Date Abdominal pain, generalized 12/30/201112/03 Supervision of other normal 01/18/2006 08/03/2010 documented as of this encounter (statuses as of 11/10/2022) [facility]04-09[facility]2010 History of Present illness Narrative* Experiencing daily migraine. Pain ranges 4-9/10 * Usually no migraine in morning. Escalates throughout the day. * Treats 1 day per week with triptan eletriptan or sumatriptan injection. eletriptan effects don't last as long as injections. Eletriptan causes nausea for first hour. Can be more functional after taking sumatriptan injection less side effect. * Days she doesn't treat she is able to function through with her activities but is limited. 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 * Last 2 weeks has been treating every other day with a triptan due to Vyepti reaction as below and increase migraine * Treats with Reyvow rarely as has vivid dreams. Does help sleep with migraine * Has Ubrelvy but may have given hives, although she endorses that she gets hives all the time. Ubrelvy did help with migraine. * All treatments seem to be helpful but don't last * Has been on Vyepti 200mg per insurance requirements. Has had 3 treatments. * First one was fine. * Second one felt burn behind eyes and was on a strong migraine kick . Gets different kinds and someare more intractable. * Third dose had severe fatigue for 2 days. Skin on chest, arms, face was hot to touch, had chills, difficulty breathing. like heart is catching , chills. Third dose was 12-09-21. * Still experiencing some of these side effects with throat more closed and airway is tight. DEJESUS continues. * Still does feel she has positive impact from Vyepti. Decreases severity of migraine. vision improved. * Had injection site reaction with Emgality, Ajovy and Aimovig. * feels has high histamine response from most meds. Those helped her vision improve and crisp. * Taking Nurtec QOD since 12-09-2020 per [facility] after last Vyepti reaction. Helps with symptoms of histamine reaction from vyepti. It works for about 3 hours. Is interested in qulipta. * Migraine occurs behind eyes bilateral. Describes as pressure * Associated light and noise sensitivity, smell sensitivity, occasional nausea and vomiting. * Triggers are strong smells, some foods and avoids. * endorses difficulty falling asleep. I feel like my eyes are jittery . Wakes easily and can't fall back to sleep. * Endorses anxiety with chronicity of migraines. Stopped tizanidine because she is on a kick to get off medicines. * Feels like she has a histamine reaction to many things is on hydroxyzine and singulair and randomlyadds xyzall. Sees yoselin hines more this. Has been years. [id number] [address] DO Work Phone: [phone] 713-443504-09-2010 History of Present illness Narrative* Experiencing daily migraine. Pain ranges 4-9/10 * Usually no migraine in morning. Escalates throughout the day. * Treats 1 day per week with triptan eletriptan or sumatriptan injection. eletriptan effects don't last as long as injections. Eletriptan causes nausea for first hour. Can be more functional after taking sumatriptan injection less side effect. * Days she doesn't treat she is able to function through with her activities but is limited. 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 * Last 2 weeks has been treating every other day with a triptan due to Vyepti reaction as below and increase migraine * Treats with Reyvow rarely as has vivid dreams. Does help sleep with migraine * Has Ubrelvy but may have given hives, although she endorses that she gets hives all the time. Ubrelvy did help with migraine. * All treatments seem to be helpful but don't last * Has been on Vyepti 200mg per insurance requirements. Has had 3 treatments. * First one was fine. * Second one felt burn behind eyes and was on a strong migraine kick . Gets different kinds and someare more intractable. * Third dose had severe fatigue for 2 days. Skin on chest, arms, face was hot to touch, had chills, difficulty breathing. like heart is catching , chills. Third dose was 12-09-21. * Still experiencing some of these side effects with throat more closed and airway is tight. DEJESUS continues. * Still does feel she has positive impact from Vyepti. Decreases severity of migraine. vision improved. * Had injection site reaction with Emgality, Ajovy and Aimovig. * feels has high histamine response from most meds. Those helped her vision improve and crisp. * Taking Nurtec QOD since 12-09-2020 per [facility] after last Vyepti reaction. Helps with symptoms of histamine reaction from vyepti. It works for about 3 hours. Is interested in qulipta. * Migraine occurs behind eyes bilateral. Describes as pressure * Associated light and noise sensitivity, smell sensitivity, occasional nausea and vomiting. * Triggers are strong smells, some foods and avoids. * endorses difficulty falling asleep. I feel like my eyes are jittery . Wakes easily and can't fall back to sleep. * Endorses anxiety with chronicity of migraines. Stopped tizanidine because she is on a kick to get off medicines. * Feels like she has a histamine reaction to many things is on hydroxyzine and singulair and randomlyadds xyzall. Sees yoselin hines more this. Has been years. [facility] Work Phone: chief complaint Narrative - Reported* Neurologic Evaluation. * Follow up migraine management [place] [id number] DO Work Phone: Chijn complaint Narrative - Reported* Neurologic Evaluation. * Follow up migraine management [facility] Work Phone: Chits complaint Narrative - Reported* Neurologic Evaluation. * Follow up migraine management [facility] 170 DO Work Phone: Chi complaint Narrative - Reported* Follow up migraine management * Neurologic Evaluation. [place] [id number] DO Work Phone: Evaluation note* Diagnosis Plant dermatitis- Primary Contact dermatitis and other eczema due to plants (except food) [facility] Diagnosis Bacterial sinusitis- Primary Unspecified sinusitis (chronic) Sore throat Acute pharyngitis Sinus pressure Other diseases of nasal cavity and sinuses Nasal congestion Other diseases of nasal cavity and sinuses [facility] Diagnosis Strep throat- Primary Streptococcal sore throat Sore throat Acute pharyngitis Fever, unspecified fever cause [facility]* An interactive audio and video telecommunication system which permits real time communications between the patient (at the originating site) and provider (at the distant site) was utilized to [facility]. Verbal consent was requested and confirmed. * Patient with history significant for chronic migraine without aura here to discuss headaches. * Reports daily headaches, but with lower severity with the Vyepti 100mg. * Before vyepti 7/10, after vyepti 4/10 headache level. Able to function with aide of vyepti. * Migraines started around age 20 worsened over the years * Medications break cycle for a few hours then returns * Migraines usually start behind both eyes, both temples, above both eyebrows, and back of head both sides * Describes as throbbing/pounding, ache/pressure, light a tight band, dull * Associated nausea, blurred vision, loss of vision, numbness/tingling, bothered by light/noise, weakness extremities, loss of words, stuttering/slurring speech, freezing sensation in extremities, difficulty concentrating affecting speech and words. Occasionally awakens at night * Triggers are stress, loud noise, smells, certain foods, missed meals, heavy lifting, weather changes * Tries quiet and darkness and warm showers, compresses * Changes with menstrual cycle * Has tried the following medications and treatments: * Eletriptan helpful for migraine abortive, no nausea, but migraine can return after. * Ondansetron not taken * Rizatriptan with nausea. * Sumatriptan injectable is helpful. * Reyvow used at night so that she can sleep, helps the next day s headache. * Tizanidine helpful for neck and shoulder tightness * Ubrelvy helpful, but with hives the following day, has tried 5 times. * Nurtec works well, no itching. * Vyepti worked well, gradually wears off. * Past Meds: * Prednisone worsens * Medrol no effect on headaches * ONB made headaches worse * Chiropractic can helpful for neck and shoulder pain. Believes that C1 needs to be cracked. * This note was partially generated using the [employer] 24/7 voice recognition system. There may be typographical errors, spelling, or punctuation errors that were not corrected prior to committing the note tothe medical record. [id number] DO Work Phone: History of Present illness Narrative* This patient is here to evaluate for allergies to environmental allergens and to evaluate for histamine and mast cell disorder. Sent by her Neurologist, Dr. Kalee Aguirre. * She has had environmental allergies in the past. 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 * [place] now live [place] farm. * changes before coming inside so able to avoid these allergens. * 20 years ago, allergy shots not recommended because she would have to take shots year-round. details not clear. * hydroxyzine at night, and singulair at night * Occas takes madison; rarely has used xyzal * Foods: limit garlic but doesn't have to avoid * Soy sauce, gabonese may trigger headaches. * Is on an anti-inflammatory diet. Makes 90% of her diet so eats clean * She has intractable migraines, always has them so hard for her to determine if foods worsen them. * She has been having problems tolerating various migraine meds. But is doing well with the most current medicine. * Breaks into hives, runny nose, itchy nose. * Has exercise and cold weather induced asthma. FH of her son with similar issues. * Uses albuterol prior to exercise. No nighttime awakenings. * +snoring noticed by in past 2 years. But denies that headaches have been worse or harder tomanage over the past 2 years. * Pmhx: Migraines for 21 years, per patient. * sh: rowing machine - gets puffy after a workout so can't use them. * She breeds [id number]. Not causing allergy although she was bothered by a cat she had years ago. * FH: Son with hx of Langerhans histiocytosis (found from vertebral fracture/back pain) * Has 4 children including a 7yo who they adopted from [place] who was born with addiction (methadone taper at ) [id number] Work Phone: History of Present illness Narrative* patient presents for follow up of allergies /histamine * She has allergic reaction, poison sumac -tree down and pau which were on the tree. * Medrol, dose pack now , reacted to prednisone in the past. * as per last SF note * This patient is here to evaluate for allergies to environmental allergens and to evaluate for histamine and mast cell disorder. Sent by her Neurologist, Dr. Kalee Aguirre. * She has had environmental allergies in the past. 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 * They now live 10 [place] away from the farm. * changes before coming inside so able to avoid these allergens. * 20 years ago, allergy shots not recommended because she would have to take shots year-round. details not clear. * hydroxyzine at night, and singulair at night * Occas takes madison; rarely has used xyzal * Foods: limit garlic but doesn't have to avoid * Soy sauce, gabonese may trigger headaches. * Is on an anti-inflammatory diet. Makes 90% of her diet so eats clean * She has intractable migraines, always has them so hard for her to determine if foods worsen them. * She has been having problems tolerating various migraine meds. But is doing well with the most current medicine. * Breaks into hives, runny nose, itchy nose. * Has exercise and cold weather induced asthma. FH of her son with similar issues. * Uses albuterol prior to exercise. No nighttime awakenings. * +snoring noticed by in past 2 years. But denies that headaches have been worse or harder tomanage over the past 2 years. * Pmhx: Migraines for 21 years, per patient. * sh: rowing machine - gets puffy after a workout so can't use them. * She breeds [id number]. Not causing allergy although she was bothered by a cat she had years ago. * FH: Son with hx of Langerhans histiocytosis (found from vertebral fracture/back pain) * Has 4 children including a 7yo who they adopted from [place] who was born with addiction (methadone taper at ) [id number] Work Phone: History of Present illness Narrative* patient presents for follow up of allergies /histamine * She has allergic reaction, poison sumac -tree down and pau which were on the tree. * Medrol, dose pack now , reacted to prednisone in the past. * as per last SF note * This patient is here to evaluate for allergies to environmental allergens and to evaluate for histamine and mast cell disorder. Sent by her Neurologist, Dr. Kalee Aguirre. * She has had environmental allergies in the past. 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 * [place] farm. * changes before coming inside so able to avoid these allergens. * 20 years ago, allergy shots not recommended because she would have to take shots year-round. details not clear. * hydroxyzine at night, and singulair at night * Occas takes madison; rarely has used xyzal * Foods: limit garlic but doesn't have to avoid * Soy sauce, gabonese may trigger headaches. * Is on an anti-inflammatory diet. Makes 90% of her diet so eats clean * She has intractable migraines, always has them so hard for her to determine if foods worsen them. * She has been having problems tolerating various migraine meds. But is doing well with the most current medicine. * Breaks into hives, runny nose, itchy nose. * Has exercise and cold weather induced asthma. FH of her son with similar issues. * Uses albuterol prior to exercise. No nighttime awakenings. * +snoring noticed by in past 2 years. But denies that headaches have been worse or harder tomanage over the past 2 years. * Pmhx: Migraines for 21 years, per patient. * sh: rowing machine - gets puffy after a workout so can't use them. * She breeds hktpf-f-ruculcu. Not causing allergy although she was bothered by a cat she had years ago. * FH: Son with hx of Langerhans histiocytosis (found from vertebral fracture/back pain) * Has 4 children including a 7yo who they adopted from [place] who was born with addiction (methadone taper at ) [id number] Work Phone: History of Present illness Narrative* patient presents for follow up of allergies /histamine * She has allergic reaction, poison sumac -tree down and pau which were on the tree. * Medrol, dose pack now , reacted to prednisone in the past. * Previous allergy skin testing reviewed and blood work results reviewed . Allergies to dog, cat, grasses, trees, and molds. No allergies to milk, egg, soy, wheat, peanut, tree nuts, fish and shellfish. , negative to grains negative tryptase levels * as per last SF note * This patient is here to evaluate for allergies to environmental allergens and to evaluate for histamine and mast cell disorder. Sent by her Neurologist, Dr. Kalee Aguirre. * She has had environmental allergies in the past. 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 * [place] now live [place] the farm. * changes before coming inside so able to avoid these allergens. * 20 years ago, allergy shots not recommended because she would have to take shots year-round. details not clear. * hydroxyzine at night, and singulair at night * Occas takes madison; rarely has used xyzal * Foods: limit garlic but doesn't have to avoid * Soy sauce, gabonese may trigger headaches. * Is on an anti-inflammatory diet. Makes 90% of her diet so eats clean * She has intractable migraines, always has them so hard for her to determine if foods worsen them. * She has been having problems tolerating various migraine meds. But is doing well with the most current medicine. * Breaks into hives, runny nose, itchy nose. * Has exercise and cold weather induced asthma. FH of her son with similar issues. * Uses albuterol prior to exercise. No nighttime awakenings. * +snoring noticed by in past 2 years. But denies that headaches have been worse or harder tomanage over the past 2 years. * Pmhx: Migraines for 21 years, per patient. * sh: rowing machine - gets puffy after a workout so can't use them. * She breeds [id number]-dyfbecc. Not causing allergy although she was bothered by a cat she had years ago. * FH: Son with hx of Langerhans histiocytosis (found from vertebral fracture/back pain) * Has 4 children including a 7yo who they adopted from [place] who was born with addiction (methadone taper at ) [id number] Work Phone: Summary Purpose Family History Unknown Family Member Name Dates Details Family history of malignant neoplasm of ovary: Mother(V16.41, Z80.41) Status:Active Unknown Family Member Name Dates Details Family history of malignant neoplasm of ovary: Mother(V16.41, Z80.41) Status:Active Unknown Family Member Name Dates Details Family history of malignant neoplasm of ovary: Mother(V16.41, Z80.41) Status:Active Unknown Family Member Name Dates Details Family history of malignant neoplasm of ovary: Mother(V16.41, Z80.41) Status:Active Unknown Family Member Name Dates Details Family history of malignant neoplasm of ovary: Mother(V16.41, Z80.41) Status:Active Unknown Family Member Name Dates Details Family history of malignant neoplasm of ovary: Mother(V16.41, Z80.41) Status:Active Unknown Family Member Name Dates Details Family history of malignant neoplasm of ovary: Mother(V16.41, Z80.41) Status:Active Unknown Family Member Name Dates Details Family history of malignant neoplasm of ovary: Mother(V16.41, Z80.41) Status:Active Unknown Family Member Name Dates Details Family history of malignant neoplasm of ovary: Mother(V16.41, Z80.41) Status:Active Unknown Family Member Name Dates Details Family history of malignant neoplasm of ovary: Mother(V16.41, Z80.41) Status:Active Unknown Family Member Name Dates Details Family history of malignant neoplasm of ovary: Mother(V16.41, Z80.41) Status:Active Unknown Family Member Name Dates Details Family history of malignant neoplasm of ovary: Mother(V16.41, Z80.41) Status:Active Unknown Family Member Name Dates Details Family history of malignant neoplasm of ovary: Mother(V16.41, Z80.41) Status:Active Unknown Family Member Name Dates Details Family history of malignant neoplasm of ovary: Mother(V16.41, Z80.41) Status:Active Unknown Family Member Name Dates Details Family history of malignant neoplasm of ovary: Mother(V16.41, Z80.41) Status:Active Unknown Family Member Name Dates Details Family history of malignant neoplasm of ovary: Mother(V16.41, Z80.41) Status:Active Unknown Family Member Name Dates Details Family history of malignant neoplasm of ovary: Mother(V16.41, Z80.41) Status:Active Unknown Family Member Name Dates Details Family history of malignant neoplasm of ovary: Mother(V16.41, Z80.41) Status:Active Unknown Family Member Name Dates Details Family history of malignant neoplasm of ovary: Mother(V16.41, Z80.41) Status:Active Advance Directives No Advanced Directives Records FoundNo Advanced Directives Records FoundNo Advanced Directives Records FoundNo Advanced Directives Records Found Chief Complaint HeadachesReferred by Neuro, has reactions to medicines given.FUV general allergy follow upFUV general allergy follow upFUV general allergy follow up Additional Source Comments INFORMATION SOURCE (unrecogn ized section and content) DATE CREATED AUTHOR AUTHOR'S ORGANIZ ATION 11/11/2022 [facility] DATE CREATED AUTHOR AUTHOR'S ORGANIZ ATION 11/26/2022 [facility] DATE CREATED AUTHOR AUTHOR'S ORGANIZ ATION 11/26/2022 [facility] Source Comments (unrecognize d section and content) In the event this informatio n is protected by the Federal Confidentiality of Alcohol and Drug Abuse Patient Records regulations: The Federal rules restrict any use of the information to criminally investigate or prosecute any alcohol or drug abuse patient.[facility] the event this information is protected by the Federal Confidentiality of Alcohol and Drug Abuse Patient Records regulations: The Federal rules restrict any use of the information to criminally investigate or prosecute any alcohol or drug abuse patient.[facility] the event this information is protected by the Federal Confidentiality of Alcohol and Drug Abuse Patient Records regulations: The Federal rules restrict any use of the information to criminally investigate or prosecute any alcohol or drug abuse patient.[facility] Reason for Visit (unrecogniz ed section and content) Reason Comments Cough Nasal drainage, head ache, pressure, sore throat x 1 month Reason Comments Sore Throat Sore throat and feve r started 3 days ago Care Teams (unrecognized sec tion and content) Health Therapist Relationship Specialty Start Date End Date Peyton Manuel MD PCP - General Neurology 02/01/19 Health Therapist Relationship Specialty Start Date End Date Peyton Manuel MD PCP - General Neurology 02/01/19 FOR RECORDS PERTAINING TO PATIENTS WHO ARE OR HAVE BEEN ENROLLED IN A CHEMICAL DEPENDENCY/SUBSTANCEABUSE PROGRAM, SOME INFORMATION MAY BE OMITTED. This clinical summary was aggregated from multiple sources. Caution should be exercised in using it in the provision of clinical care. This summary normalizes information from multiple sources, and as a consequence, information in this document may materially change the coding, format and clinical context of patient data. In addition, data may be omitted in some cases. CLINICAL DECISIONS SHOULD BE BASED ON THE PRIMARY CLINICAL RECORDS. [employer] provides no warranty or guarantee of the accuracy or completeness of information in this document.
[2023-11-22 08:12] LABS: Absolute Lymphocyte Count 2.04 X10^3/uL (0.83-4.51); Absolute Neutrophil Count 2.5 X10^3/uL (2.0-7.7); Basophil# 0.06 X10^3/uL; Basophil% 1.2 % (0-1); Eosinophil# 0.28 X10^3/uL; Eosinophils% 5.4 % (0-5); Hematocrit 40.8 % (37-47); Hemoglobin 13.3 g/dL (12.0-15.0); Lymphocyte # 2.04 X10^3/ul (0.83-4.51); Lymphocyte % 39.2 % (19-41); Mean Corp Hgb Conc 32.6 g/dL (32-36); Mean Corpuscular Hgb 30.9 pg (27.0-32.0); Mean Corpuscular Volume 94.7 fL (81-99); Mean Platelet Vol. 8.9 fl (6.2-12.0); Monocyte# 0.36 X10^3/uL; Monocyte% 6.9 % (0-10); NRBC Flagged by Analyzer 0 % (0-5); Neutrophil # 2.45 X10^3/uL (2.7-7.7); Neutrophil % 47.1 % (47-70); Platelet Count 313 K/mm3 (150-450); RBC Distribution Width CV 11.9 % (11.6-14.6); RBC Distribution Width SD 41.7 fl (35.1-43.9); Red Blood Count 4.31 M/mm3 (4.2-5.4); White Blood Count 5.2 K/mm3 (4.4-11.0)
[2023-11-22 08:51] LABS: Hemoglobin A1c 5.7 % (3.8-5.6)
[2023-11-22 09:00] LABS: AST(SGOT) 16 U/L (15-37); Alanine Aminotransfer ALT/SGPT 34 U/L (13-56); Albumin, Serum 3.6 g/dL (3.2-5.0); Alkaline Phosphatase 47 U/L (45-117); Anion Gap 5 (5-15); BUN 14 mg/dL (7-18); BUN/Creat Ratio 16.8 RATIO (10-20); Calcium,Total 9.1 mg/dL (8.5-10.1); Chloride 107 mmol/L (98-107); Cholesterol 223 mg/dL (200); Creatinine, Serum 0.83 mg/dL (0.55-1.02); EST Glomerular Filtration Rate 79 mL/min (>60); Est Glom Filt Rate - Afr Amer 96 mL/min (>60); Globulin 3.6 g/dL (2.2-4.2); Glucose 114 mg/dL (74-106); High Density Lipoprotein 53 mg/dL; Potassium 4.2 mmol/L (3.5-5.1); Protein, Total 7.2 g/dL (6.4-8.2); Sodium Level 138 mmol/L (136-145); T4 Free Direct 0.79 ng/dL (0.76-1.46); Thyroid Stim Hormone (TSH) 2.14 uIU/mL (0.358-3.74); Triglycerides 303 mg/dL; Very Low Density Lipoprotein 61 mg/dL (5-40)
== END | disposition home or self-care (01) ==
LOC: LAB 07:38
PROVIDERS: PCP Internal Medicine; Referring Provider Nurse Practitioner; Visit Provider Nurse Practitioner
DX: Z00.00 Encounter for general adult medical examination without abnormal findings (principal); R63.5 Abnormal weight gain
CPT/HCPCS: 36415; 80053; 80061; 83036; 84439; 84443; 85025

== ENCOUNTER → 2023-11-28 | Outpatient (CLI) | payer OTHER, SELFPAY ==
--- NOTE | 2023-11-28 12:20 | BI_ITS ---
MAMMOGRAPHY - BILATERAL SCREENING REASON FOR EXAM: Female, 43 years old. Routine annual screening examination. PERTINENT HISTORY: Non-contributory. TECHNIQUE: Digital bilateral breast sabas (3D mammographic acquisition) in the CC and MLO projections. 2-D mediolateral oblique (MLO) and craniocaudad (CC) views of both breasts were obtained. CAD: Full Field Digital Mammography with Computer Added Detection was performed. COMPARISON: None. Baseline examination. FINDINGS: Breast Composition: The breasts are heterogeneously dense, which may obscure small masses. There are no dominant masses or suspicious calcifications. No other significant abnormalities are identified. BI/SCRN MAMM (CAD)W/SABAS BILAT IMPRESSION: Negative screening mammogram. Yearly followup mammogram recommended. (A) ASSESSMENT CATEGORY: BIRADS Category 1: Negative. A letter regarding these results will be sent to the patient by the facility within 30 days. Approximately 10% of breast cancers are not detected by mammography. A normal mammogram should not delay biopsy of a clinically suspicious abnormality. [id number] Electronically Signed: Gee Garzon MD at 13:04 EST ,
== END | disposition home or self-care (01) ==
LOC: OPBI 12:20
PROVIDERS: PCP Internal Medicine; Referring Provider Nurse Practitioner; Visit Provider Nurse Practitioner
DX: Z12.31 Encounter for screening mammogram for malignant neoplasm of breast (principal)
CPT/HCPCS: 77063; 77067